=== PATIENT | female | born 1950 | race Caucasian/White ===

== ENCOUNTER 2018-01-08 10:52 | Emergency (ER) | payer OTHER ==
[2018-01-08 11:02] VITALS: TEMP 97.6
--- NOTE | 2018-01-08 11:32 | C.PDOC ---
History Of Present Illness 67 year old female presents to the ED with family member for evaluation of right knee pain which began around 2 days ago. Patient states she was walking when she suddenly heard a "pop" in her knee. Patient reports pain with knee bending. She was evaluated by her PMD, who prescribed 400mg Ibuprofen to take three times/day and recommended ER visit to get an X-ray done. She denies direct trauma,injuries to the site, falls, extremity numbness/weakness. Time Seen by Provider: 01/08/18 11:11 Chief Complaint (Nursing): Lower Extremity Problem/Injury History Per: Patient History/Exam Limitations: no limitations Onset/Duration Of Symptoms: Days (2) Current Symptoms Are (Timing): Still Present Additional History Per: Patient - Knee Description Of Injury: denies: Fell, Struck With Object, Struck Against Object, Twisted Past Medical History Reviewed: Historical Data, Nursing Documentation, Vital Signs Vital Signs: Last Vital Signs Temp 97.6 F 01/08/18 10:58 Pulse 81 01/08/18 12:14 Resp 16 01/08/18 12:14 BP 121/85 01/08/18 12:14 Pulse Ox 98 01/08/18 12:14 - Medical History PMH: No Chronic Diseases Surgical History: No Surg Hx Family History: States: Unknown Family Hx - Social History Hx Alcohol Use: No Hx Substance Use: No - Immunization History Hx Tetanus Toxoid Vaccination: No Hx Influenza Vaccination: No Hx Pneumococcal Vaccination: No Review Of Systems Musculoskeletal: Positive for: Other (right knee pain ) Neurological: Negative for: Weakness, Numbness Physical Exam - Physical Exam Appears: Non-toxic, No Acute Distress Skin: Normal Color, Warm, Dry, No Ecchymosis Head: Atraumatic, Normacephalic Eye(s): bilateral: Normal Inspection Neck: Normal ROM Chest: Symmetrical Extremity: Normal ROM, Tenderness (mild, to medial aspect of right knee ), No Calf Tenderness, Capillary Refill (less than 2 seconds ), No Deformity, Swelling (mild, to medial aspect of right knee) Neurological/Psych: Normal Speech, Normal Cognition, Normal Sensation Gait: Steady ED Course And Treatment O2 Sat by Pulse Oximetry: 99 (on RA ) Pulse Ox Interpretation: Normal Medical Decision Making Medical Decision Making: Plan: * Right knee XR Progress: Right knee XR ordered. Results show no evidence of fracture or dislocation. Arthritic changes noted. On reassessment, patient is resting comfortably, showing no signs of distress and is ambulatory in the ED with a steady gait. Patient is stable for discharge and is advised to follow up with her PMD within 1-2 days for further evaluation. Disposition Counseled Patient/Family Regarding: Studies Performed, Diagnosis, Need For Followup - Disposition [facility] Disposition: HOME/ ROUTINE Disposition Time: 11:40 Condition: GOOD Additional Instructions: Your xray was normal, no fracture, shows arthritis. Please apply ice to area 15 minutes three times a day. Take Motrin as needed for pain every 6 hours, with food to not upset stomach. Follow up with orthopedic if pain persists over one week. Instructions: Knee Pain (DC), Joint Pain Forms: [employer] [facility] ([place]), Work Excuse - POA Present On Arrival: None - Clinical Impression Clinical Impression: Arthralgia of knee, right - PA / FAMILY COUNSELOR / Resident Statement MD/DO has reviewed & agrees with the documentation as recorded. - Scribe Statement The provider has reviewed the documentation as recorded by the Scribe (Aury Arce) All medical record entries made by the Scribe were at my direction and personally dictated by me. I have reviewed the chart and agree that the record accurately reflects my personal performance of the history, physical exam, medical decision making, and the department course for this patient. I have also personally directed, reviewed, and agree with the discharge instructions and disposition.
[2018-01-08 12:19] VITALS: BP 121/85; PULSE 81; RESP 16
[2018-01-08 13:52] VITALS: O2SAT 99
--- NOTE | 2018-01-08 14:58 | RAD ---
PROCEDURE: Right Knee Radiographs. HISTORY: pain right knee COMPARISON: None. FINDINGS: BONES: Diffuse osteopenia noted. No evidence of acute fracture. JOINTS: Mild osteoarthritic changes. JOINT EFFUSION: No evidence of significant joint effusion. OTHER FINDINGS: None. IMPRESSION: No radiographic evidence of acute pathology. Mild diffuse osteopenia.
== END 2018-01-08 12:26 | disposition home or self-care (01) ==
LOC: C.ER 10:52
DX: M25.561 Pain in right knee (principal)